=== PATIENT | male | born 1960 | race Two or more races ===

== ENCOUNTER 2019-08-25 23:53 | Emergency (ER) | payer MEDICARE, MEDICAID ==
[~2019-08-25] VITALS: Ht 162.6 cm; Wt 72.6 kg
[2019-08-26 00:52] LABS: Urine WBC None Seen /hpf (0 - 3)
[2019-08-26 01:01] LABS: Urine Bacteria NONE SEEN /hpf (None Seen); Urine Blood Negative /uL (Negative)
[2019-08-26 01:16] LABS: Alcohol, Urine < 3.0 mg/dL (0-5); Amphetamine Screen, Urine NEGATIVE (NEGATIVE); Barbiturate Scree,Urine NEGATIVE (NEGATIVE); Benzodiazephine Screen, Urine NEGATIVE (NEGATIVE); Cannabinoid Screen, Urine NEGATIVE (NEGATIVE); Cocaine Screen, Urine NEGATIVE (NEGATIVE); Opiate Scree,Urine NEGATIVE (NEGATIVE); Phencyclidine Screen, Urine NEGATIVE (NEGATIVE)
[2019-08-26 01:23] LABS: Basophils # (auto) 0 uL; Basophils % (auto) 0.5 % (0.0-2.0); Eosinophils # (auto) 0.2 uL; Eosinophils % (auto) 2.4 % (0.0-7.0); Hematocrit 41.2 % (41.0-53.0); Hemoglobin 14.2 g/dL (13.5-17.5); Lymphocytes # (auto) 2.2 uL; Lymphocytes % (auto) 28.4 % (10.0-50.0); Mean Corpuscular Hemoglobin 32.3 pg (28.0-32.0); Mean Corpuscular Hgb Conc. 34.5 g/dL (32.0-36.0); Mean Corpuscular Volume 93.5 fL (80.0-100.0); Monocytes # (auto) 0.8 uL; Monocytes % (auto) 10.2 % (0.0-12.0); Neutrophils # (auto) 4.5 uL; Neutrophils % (auto) 58.5 % (37.0-80.0); Nucleated Red Blood Cells % 0.1 %; Platelet Count (auto) 239 10^3/uL (140-450); Red Blood Cells 4.41 10^6/uL (4.5-5.90); Red Cell Distribution Width 12.9 % (11.8-14.3); White Blood Cell 7.6 10^3/uL (4.4-10.8)
[2019-08-26 01:42] LABS: Chloride 106 mmol/L (98-107); Potassium 3.4 mmol/L (3.5-5.1); Sodium 140 mmol/L (136-145)
[2019-08-26 01:46] LABS: Alanine Aminotransferase 32 U/L (16-61); Albumin 3.4 g/dL (3.4-5.0); Anion Gap 5 (5-15); Aspartate Aminotransferase 14 U/L (15-37); BUN/Creatinine Ratio 4.8; Blood Alcohol < 3.0 mg/dL (0-5); Blood Urea Nitrogen 3 mg/dL (7-18); Calcium 8.7 mg/dL (8.5-10.1); Carbon Dioxide 29 mmol/L (21-32); GFR African American 172 mL/min; GFR Non-African American 142 mL/min; Glucose 109 mg/dL (74-106)
[2019-08-26 01:47] LABS: Salicylate < 1.7 mg/dL (2.8-20.0)
[2019-08-26 01:48] LABS: Alkaline Phosphatase 82 U/L (45-117); Bilirubin, Total 0.3 mg/dL (0.2-1.0); Total Protein 7.3 g/dL (6.4-8.2)
[2019-08-26 01:52] LABS: Acetaminophen < 2.0 ug/mL (10-30)
[2019-08-26] MEDS ORDERED: LORazepam 0.5 MG TAB PO ONE (04:45)
[2019-08-26 08:07] VITALS: BP 116/79
== END 2019-08-26 08:36 | disposition home or self-care (01) ==
LOC: ER 08-26 00:11
DX: R45.851 Suicidal ideations (principal); R45.850 Homicidal ideations; R44.0 Auditory hallucinations; F20.9 Schizophrenia, unspecified; Z90.49 Acquired absence of other specified parts of digestive tract
CPT/HCPCS: 36415; 80053; 80307; 80320; 80329; 81001; 85025